=== PATIENT | male | born 1995 | race Caucasian/White ===

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

== ENCOUNTER 2018-03-15 08:46 | Emergency (ER) | payer MEDICAID ==
--- NOTE | 2018-03-15 09:50 | ED Physician Chart ---
ED Chief Complaint/HPI - Patient Information Date Seen:: 03/15/18 Time Seen:: 09:10 Chief Complaint:: rash History of Present Illness:: This is a 22 yo male with a sudden onset of a rash over his whole body that did not respond to benadryl. he denies fever, sore throat and cough. he does admit to mild congestion and a lump under his left elbow. he had an incision and drainage of an abscess there sometime ago. Allergies:: Allergies Allergy/AdvReac Type Severity Reaction Status Date / Time cefixime Allergy Verified 12/16/17 20:01 Cephalosporins Allergy Verified 12/16/17 20:01 Vitals:: Vital Signs - 8 hr 03/15/18 09:03 Temp 97.4 F HR 87 RR 15 BP 136/86 O2 Sat % 98 Historian:: Patient, Family Member (mother) Review:: Nurse's Note Reviewed ED Review of Systems - Review of Systems General/Constitutional: No fever, No chills, No weight loss, No weakness, No diaphoresis, No edema, No loss of appetite Skin: No skin lesions, Rash, No bruising Head: No headache, No light-headedness Eyes: No loss of vision, No pain, No diplopia ENT: No earache, No nasal drainage, No sore throat, No tinnitus Neck: No neck pain, No swelling, No thyromegaly, No stiffness, No mass noted Cardio Vascular: No chest pain, No palpitations, No PND, No orthopnea, No edema Pulmonary: No SOB, No cough, No sputum, No wheezing, Other (congestion) GI: No nausea, No vomiting, No diarrhea, No pain, No melena, No hematochezia, No constipation, No hematemesis G/U: No dysuria, No frequency, No hematuria Musculoskeletal: No bone or joint pain, No back pain, No muscle pain, Other ( left elbow lump that is not red or tender but swollen.) Endocrine: No polyuria, No polydipsia Psychiatric: No prior psych history, No depression, No anxiety, No suicidal ideation Hematopoietic: No bruising, No lymphadenopathy Allergic/Immuno: No urticaria, No angioedema Neurological: No syncope, No focal symptoms, No weakness, No paresthesia, No headache, No seizure, No dizziness, No confusion, No vertigo ED Past Medical History - Past Medical History Obtainable: Yes Past Medical History: No significant medical hx Family History: None Social History: Non Smoker, No Alcohol, No Drug Use Surgical History: Appendectomy Family Medical History - Family Member Mother History Unknown: Yes Ethnicity: Non- Living Status: Still Living Hx Family Cancer: No Hx Family Coronary Artery Disease: No Hx Family Congestive Heart Failure: No Hx Family Hypertension: Yes Hx Family Stroke: No Hx Family Diabetes: No Hx Family Seizures: No Hx Family Dementia: No Hx Family AIDS: No Hx Family HIV: No Hx Family COPD: No Hx Family Hepatitis: Yes Hx Family Psychiatric Problems: No Hx Family Tuberculosis: No ED Physical Exam - Physical Examination General/Constitutional: Awake, Well-developed, well-nourished, Alert, No distress, GCS 15, Non-toxic appearing, Ambulatory Head: Atraumatic Eyes: Lids, conjuctiva normal, PERRL, EOMI Skin: Nl inspection, No rash (generalize uticaria over the entire body), No skin lesions, No ecchymosis, Well hydrated, No lymphadenopathy ENMT: External ears, nose nl, Nasal exam nl, Lips, teeth, gums nl Neck: Nontender, Full ROM w/o pain, No JVD, No nuchal rigidity, No bruit, No mass, No stridor Respiratory: Nl effort/Exclusion, Clear to Auscultation, No Wheeze/Rhonchi/Rales Cardio Vascular: RRR, No murmur, gallop, rubs, NL S1 S2 GI: No tenderness/rebounding/guarding, No organomegaly, No hernia, Normal BS's, Nondistended, No mass/bruits, No McBurney tenderness : No CVA tenderness Extremities: No tenderness or effusion, Full ROM, normal strength in all extremities, No edema, Normal digits & nails Other Extremities comments:: left elbow on the ventral side a non-tender mass that is large but not movable, not red, not warm. Neuro/Psych: Alert/oriented, DTR's symmetric, Normal sensory exam, Normal motor strength, Judgement/insight normal, Mood normal, Normal gait, No focal deficits Misc: Normal back, No paraspinal tenderness ED Labs/Radiology/EKG Results - Lab Results Results: Laboratory Results - last 24 hr 03/15/18 03/15/18 09:44 09:44 WBC 8.1 RBC 6.22 H Hgb 17.3 Hct 50.4 MCV 81.0 MCH 27.8 MCHC Differential 34.3 RDW 12.2 Plt Count 244 MPV 8.2 Neutrophils % 75.4 Lymphocytes % 16.1 L Monocytes % 7.4 Eosinophils % 0.6 Basophils % 0.5 Sodium 135 L Potassium 3.8 Chloride 102 Carbon Dioxide 26.3 Anion Gap 10.5 BUN 8 Creatinine 0.8 Est GFR ( Amer) > 60.0 Est GFR (Non-Af Amer) > 60.0 BUN/Creatinine Ratio 10.0 Glucose 97 Calcium 9.7 Total Bilirubin 0.7 AST 18 ALT 15 Alkaline Phosphatase 77 Total Protein 7.3 Albumin 4.7 Globulin 2.6 Albumin/Globulin Ratio 1.8 - Radiology Results Results: ct scan of the chest and left arm = nad ED Assessment - Assessment General Assessment: ALLERGIC UTICARIA LEFT ELBOW MASS ED Septic Shock - . Is Septic Shock (SBP<90, OR Lactate>4 mmol\L) present?: No - <6hrs of presentation: Vital Signs: Vital Signs - 8 hr 03/15/18 09:03 Temp 97.4 F HR 87 RR 15 BP 136/86 O2 Sat % 98 ED Reassessment (Disposition) - Reassessment Reassessment Condition:: Improved - Diagnosis Diagnosis:: allergic uticaria left elbow pain - Aftercare/Follow up Instructions Aftercare/Follow-Up Instructions:: Counseled pt regarding lab results/diagnosis & need follow up, Refer to Discharge Instructions, Counseled pt & family regarding lab results/diagnosis & need follow up - Patient Disposition Discharge/Transfer:: Home Condition at Disposition:: Improved
[2018-03-15 09:55] LABS: % BASOPHILS 0.5 % (0.0-2.0); % EOSINOPHILS 0.6 % (0.0-5.0); % LYMPHOCYTES 16.1 % (20.0-50.0); % MONOCYTES 7.4 % (2.0-10.0); % NEUTROPHILS 75.4 % (40.0-80.0); HEMATOCRIT 50.4 % (41.0-60); HEMOGLOBIN 17.3 gm/dL (12-16); LYMPHOCYTE ABSOLUTE 1.3 Th/cmm (1.5-3.0); MEAN CORPUSCULAR HEMOGLOBIN 27.8 pg (26.0-30.0); MEAN CORPUSCULAR HGB CONC 34.3 pg (28.0-36.0); MEAN PLATELET VOLUME 8.2 fl; MONOCYTE ABSOLUTE 0.6 Th/cmm (0.3-1.0); NEUTROPHILE ABSOLUTE 6.2 Th/cmm (1.8-8.0); PLATELET COUNT 244 Th/cmm (150-400); RED BLOOD COUNT 6.22 Mil/cmm (4.30-5.70); RED CELL DISTRIBUTION WIDTH 12.2 % (11.5-20.0); WHITE BLOOD COUNT 8.1 Th/cmm (4.8-10.8)
[2018-03-15 10:21] LABS: ALB/GLOB RATIO 1.8 (1.0-1.8); ALBUMIN 4.7 gm/dL (4.2-5.5); ALKALINE PHOSPHATASE 77 U/L (34-104); ANION GAP 10.5 (7.0-16.0); BILIRUBIN,TOTAL 0.7 mg/dL (0.3-1.0); BUN - UREA NITROGEN 8 mg/dL (7-25); CALCIUM SERUM 9.7 mg/dL (8.6-10.3); CARBON DIOXIDE 26.3 mEq/L (21.0-31.0); CHLORIDE 102 mEq/L (98-107); CREATININE - SERUM 0.8 mg/dL (0.7-1.3); GFR AFRICAN-AMERICAN > 60.0 ml/min (>90); GFR NON AFRICAN-AMERICAN > 60.0 ml/min; GLUCOSE 97 mg/dL (70-105); POTASSIUM SERUM 3.8 mEq/L (3.5-5.1); SGOT 18 U/L (13-39); SGPT/ALT 15 U/L (7-52); SODIUM SERUM 135 mEq/L (136-145); TOTAL PROTEIN,SERUM 7.3 gm/dL (6.0-8.3)
--- NOTE | 2018-03-16 10:34 | Diagnostic Imaging Report ---
Exam: CT examination of left upper extremity Diagnosis: Nodularity. Total DLP equals 566 CTDI equals 0.4 Findings: Multiple contiguous thin section of the left upper extremity was obtained from left shoulder joint to the left midforearm The study is limited without contrast administration. The study demonstrates no evidence of fracture dislocation. No soft tissue swelling is noted. The visualized vascular structures intact. The study is extremely limited without contrast administration IMPRESSION: normal limited examination of the left arm.
--- NOTE | 2018-03-16 10:40 | Diagnostic Imaging Report ---
CT scan of the chest without intravenous contrast History: Congestion Total DLP equals 315 CTDI equals 7.0 Axial sections were obtained from a level above the clavicles down to a level below the diaphragm. Exam the mediastinum demonstrates preservation of normal fat planes about the major vascular landmarks. No abnormal masses. Specifically no lymphadenopathy. No abnormal focal pulmonary parenchymal masses or nodules are seen. The hilar regions appear normal. No pleural effusions are seen. Impression: No acute abnormalities
== END 2018-03-15 12:29 | disposition short-term general hospital (02) ==
LOC: ER 08:46
DX: L50.0 Allergic urticaria (principal); M25.522 Pain in left elbow; Z90.49 Acquired absence of other specified parts of digestive tract; Z88.1 Allergy status to other antibiotic agents
CPT/HCPCS: 99285; 96372; 71250; 73200; 36415; 85025; 80053; J2930